=== PATIENT | female | born 1990 | race Caucasian/White ===

== ENCOUNTER 2018-07-01 14:42 | Emergency (ER) | payer OTHER ==
[~2018-07-01] VITALS: Ht 162.6 cm; Wt 75.9 kg
[2018-07-01 14:45] VITALS: TEMP 96.6
[2018-07-01] MEDS ORDERED: ZOLOFT 50MG50 MG PO (14:53)
[2018-07-01] MEDS ORDERED: NUVARING VAG RING VG (14:53)
[2018-07-01] MEDS ORDERED: NORCO 325 MG-51 TAB PO (17:30)
[2018-07-01] MEDS ORDERED: ZOFRAN ODT4 MG PO (17:30)
[2018-07-01 18:03] VITALS: BP 118/79; PULSE 81
== END 2018-07-01 18:06 | disposition home or self-care (01) ==
LOC: COL.ER 14:42
DX: S09.90XA Unspecified injury of head, initial encounter (principal); S01.81XA Laceration without foreign body of other part of head, initial encounter; F41.9 Anxiety disorder, unspecified; Z23 Encounter for immunization; V49.40XA Driver injured in collision with unspecified motor vehicles in traffic accident, initial encounter; Y92.488 Other paved roadways as the place of occurrence of the external cause